=== PATIENT | male | born 1990 | race Caucasian/White ===

== ENCOUNTER 2016-10-11 18:47 | Emergency (ER) | payer SELFPAY ==
--- NOTE | 2016-10-11 19:07 | NUR ---
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
== END 2016-10-11 19:08 | disposition left against medical advice (07) ==
LOC: ER 18:52
DX: Z53.21 Procedure and treatment not carried out due to patient leaving prior to being seen by health care provider (principal)

== ENCOUNTER 2016-10-12 09:04 | Emergency (ER) | payer OTHER ==
[~2016-10-12] VITALS: Ht 175.3 cm; Wt 84.4 kg
--- NOTE | 2016-10-12 09:04 | NUR ---
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 NAD NOTED. PT AAO X4, AMBULATORY WITH STEADY GAIT. RR EVEN AND UNLABORED. VSS. DR BRIGGS AT BEDSIDE FOR EVAL.
[2016-10-12 09:30] VITALS: BP 136/81
== END 2016-10-12 09:45 | disposition home or self-care (01) ==
LOC: ER 09:05
DX: M54.5 Low back pain (principal)
CPT/HCPCS: 99283; A4606 ×2; Z7610 ×2